=== PATIENT | female | born 1985 ===

== ENCOUNTER 2020-07-10 05:57 | Day surgery (SDC) | payer OTHER ==
[2020-07-10] MEDS ORDERED: Tylenol #3 PO (13:36)
[2020-07-10] MEDS ORDERED: MORGIDOX100 MG PO (13:36)
== END 2020-07-10 19:15 | disposition home or self-care (01) ==
LOC: CIR.AMB 05:57 → ADM 09:00 → CIR.AMB 09:00
PROVIDERS: ATTEND Obstetrics & Gynecology
DX: D25.0 Submucous leiomyoma of uterus (principal); N84.0 Polyp of corpus uteri; Z20.828 Contact with and (suspected) exposure to other viral communicable diseases